=== PATIENT | male | born 1995 | race Caucasian/White ===

== ENCOUNTER 2025-08-11 05:56 | Day surgery (SDC) | payer MEDICARE, BC ==
[2025-08-02 15:12] VITALS: BMI 30.2
[2025-08-11] MEDS ORDERED: Chlorhexidine Gluconate 15 ML UDCUP SSP ONE (06:28)
[2025-08-11] MEDS ORDERED: Lidocaine 1% w/Epinephrine 1:200K 30 ML VIAL ONE (06:28)
[2025-08-11] MEDS ORDERED: AFRIN NASAL MIST 15 ML BOT ONE (06:30)
[2025-08-11] MEDS ORDERED: PROPOFOL 40 ML ONE (06:33)
[2025-08-11] MEDS ORDERED: SUCCINYLCHOLINE/SOD CL,ISO/PF 200 MG/10 ML SYRINGE FS ONE (06:33)
[2025-08-11] MEDS ORDERED: Lidocaine 1% (PF) 30 ML VIAL ONE (06:33)
[2025-08-11] MEDS ORDERED: PHENYLEPHRINE-NS 100 MCG/ML 10 ML SYRINGE ONE (07:28)
== END 2025-08-11 11:19 | disposition home or self-care (01) ==
LOC: CSHSDC 05:56 → MERGE 14:45
PROVIDERS: ATTEND Dentist Oral and Maxillofacial Surgery
PROC: 0CDXXZ0 Extraction of Lower Tooth, Single, External Approach (ICD-10-PCS; principal; 2025-08-11)
DX: K02.9 Dental caries, unspecified (principal); K05.10 Chronic gingivitis, plaque induced; K05.6 Periodontal disease, unspecified; K21.9 Gastro-esophageal reflux disease without esophagitis; Z88.1 Allergy status to other antibiotic agents; Z88.8 Allergy status to other drugs, medicaments and biological substances; Z79.899 Other long term (current) drug therapy
CPT/HCPCS: 41899; J1100; J2003; J2250; J2704; J3010